=== PATIENT | female | born 1995 | race Caucasian/White ===

== ENCOUNTER 2016-06-26 09:03 | Emergency (ER) | payer SELFPAY ==
[~2016-06-26] VITALS: Ht 167.6 cm; Wt 110.9 kg
[~2016-06-26 09:03] MED LIST: INDOCIN50 MG PO
[2016-06-26] MEDS ORDERED: AZITHROMYCIN250 MG1 PO (09:39)
[2016-06-26] MEDS ORDERED: TESSALON PERLE100 MG PO (09:39)
[2016-06-26 10:33] VITALS: BP 147/70
== END 2016-06-26 10:34 | disposition home or self-care (01) ==
LOC: EME 09:03
DX: J40 Bronchitis, not specified as acute or chronic (principal)
CPT/HCPCS: 99281; 99284